=== PATIENT | male | born 1975 | race Caucasian/White ===

== ENCOUNTER 2017-01-20 10:00 | Emergency (ER) | payer SELFPAY ==
[~2017-01-20] VITALS: Ht 182.9 cm; Wt 100.0 kg
[2017-01-20 10:01] VITALS: BP 152/95; PULSE 73; RESP 15; TEMP 99.3; O2SAT 96
--- NOTE | 2017-01-20 11:20 | PD ---
HPI Chief Complaint: ENT Complaint Time Seen by Provider: 11:10 Travel History International Travel<30 days: No Contact w/Intl Traveler<30days: No Traveled to known affect area: No History of Present Illness HPI 41 year old male presents to the emergency department for evaluation of sore throat for 2 days. Patient denies fevers, chills. No cough or congestion. No abdominal pain, nausea, vomiting, diarrhea. Patient reports difficulty opening his mouth. He states he is able to drink a can handle his own secretions. Patient reports no chronic medical problems and takes no prescribed medications. Patient denies any other complaints at this time. [facility] Past Medical History Medical History: Denies Significant Hx Past Surgical History Surgical History: No Previous Surgery Social History Alcohol Use: Yes ([facility]) Tobacco Use: No Substance Use: No Allergies-Medications (Allergen,Severity, Reaction): Coded Allergies: No Known Drug Allergies (Verified Allergy, Unknown, 01/20/17) Reported Meds & Prescriptions Reported Meds & Active Scripts Active No Active Prescriptions or Reported Medications Review of Systems Except as stated in HPI: all other systems reviewed are Neg Physical Exam Narrative GENERAL: Well-nourished, well-developed male patient, afebrile. SKIN: Focused skin assessment warm/dry. HEAD: Normocephalic. Atraumatic ENT: Mucosa pink and moist. Bilateral tonsils are erythematous with exudates. Left tonsil is larger than right tonsil, tonsils are kissing. Uvula remains midline. No uvular edema. No uvular, palatal, or tonsillar deviation. Airway patent. Nasal turbinates appear normal without nasal blood, purulent drainage or septal hematoma. Bilateral tympanic membranes are clear without erythema or perforation. Patient is handling secretions without difficulty. EYES: No scleral icterus. No injection or drainage. NECK: Supple, trachea midline. No JVD or lymphadenopathy. CARDIOVASCULAR: Regular rate and rhythm without murmurs, gallops, or rubs. RESPIRATORY: Breath sounds equal bilaterally. No accessory muscle use. Lungs sounds are clear to auscultation. GASTROINTESTINAL: Abdomen soft, non-tender, nondistended. MUSCULOSKELETAL: No cyanosis, or edema. BACK: Nontender without obvious deformity. No CVA tenderness. Data Data Last Documented VS Vital Signs Date Time Temp Pulse Resp B/P (MAP) Pulse Ox O2 Delivery O2 Flow Rate FiO2 9/16/17 10:01 99.3 73 15 152/95 (114) 96 Orders Orders Ice/Cold Pack (01/20/17 11:17) Group A Rapid Strep Screen (01/20/17 11:17) Ampicillin-Sulbactam Inj (Unasyn Inj) (01/20/17 11:30) Dexamethasone Inj (Decadron Inj) (01/20/17 11:30) MDM Medical Decision Making Medical Screen Exam Complete: Yes Emergency Medical Condition: Yes Medical Record Reviewed: Yes Differential Diagnosis Strep pharyngitis versus tonsillitis versus peritonsillar abscess Narrative Course 41-year-old male presents to the emergency department for evaluation of sore throat for 2 days. Physical exam reveals kissing tonsils, with exudates. I discussed it with my attending physician, Dr. Gant, recommends IV dexamethasone, antibiotic, discharged home with oral antibiotic. He is to follow-up with his primary care physician or return here for any acute worsening of symptoms. Strep swab is ordered and is positive. Patient will be sent home with a prescription for prednisone, Augmentin. He is to return here for any acute worsening of symptoms. He verbalizes agreement and understanding. The patient was discharged in stable condition with instructions, including return instructions and follow up instructions. Diagnosis Primary Impression: Strep pharyngitis Referrals: Primary Care Physician call for appointment Patient Instructions: General Instructions, Strep Throat (ED) Departure Forms: Tests/Procedures, Work Release Enter return to work date: Jan 22, 2017 Additional Instructions: Take antibiotic as directed until gone. I gave you coupon to get this at [employer]. Take prednisone as directed. Start this tomorrow. [id number] Tylenol every 4 hours as needed for pain/fever. Over-the- counter ibuprofen every 6-8 hours as needed for pain/fever. Follow-up with your primary care physician. Return to the emergency department for any acute worsening of symptoms. Med/Other Pt SpecificInfo: Prescription(s) given Scripts Prednisone (Prednisone) 20 Mg Tab 40 MG PO DAILY for 4 Days, #8 TAB 0 Refills Prov: Veronica Bal 01/20/17 Amoxicillin-Clavulanate (Augmentin) 875-125 Mg Tab 1 TAB PO BID for Infection for 10 Days, #20 TAB 0 Refills Prov: Veronica Bal 01/20/17 Disposition: 01 DISCHARGE HOME Condition: Stable Veronica Bal Jan 20, 2017 11:20
[2017-01-20] MEDS ORDERED: AMPICILLIN-SULBACTAM INJ 3 GM in SODIUM CHLORIDE 0.9% INJ 100 ML IV ONE (11:30)
[2017-01-20] MEDS ORDERED: DEXAMETHASONE SOD PHOS 4 MG/ML VIAL IV PUSH ONE (11:30)
[2017-01-20] MEDS ORDERED: PRED20 PO (12:11)
[2017-01-20] MEDS ORDERED: AUGM875T3 PO (12:11)
== END 2017-01-20 12:28 | disposition home or self-care (01) ==
LOC: NEPC 10:00
DX: J02.0 Streptococcal pharyngitis (principal)
CPT/HCPCS: 87880; 96361; 96374; 99284; J0295; J1100